=== PATIENT | female | born 1985 | race Caucasian/White ===

== ENCOUNTER 2017-10-09 20:26 | Emergency (ER) | payer BC, MEDICAID, SELFPAY ==
[2017-10-09 20:56] VITALS: TEMP 97.4
--- NOTE | 2017-10-09 21:46 | ED PDOC ---
Arrival/HPI - General Chief Complaint: Anxiety Time Seen by Provider: 10/09/17 20:52 Historian: Patient - History of Present Illness Narrative History of Present Illness (Text): 10/09/17 21:25 Nena Meade is a 32 year old female, whose past medical history includes C- section, who presents to the emergency department complaining of shortness of breath, shoulder pain, right -sided chest pain, and numbness to right forearm and right leg since 19:30 tonight. Patient states that last week she experienced pain to right arm but it went away. Today, patient states that symptoms came back but worse. Patient states that symptoms first began with shortness of breath, then pain to her right shoulder, chest, and arm. Patient's family notes that she had the same symptoms a few years ago and was told it was due to stress and anxiety. No other complaints at this time PMD: None Time/Duration: 1-3 hours Symptom Onset: Sudden Symptom Course: Unchanged Activities at Onset: Light Context: Home Past Medical History - Provider Review Nursing Documentation Reviewed: Yes - Psychiatric Hx Substance Use: No - Surgical History Hx Section: Yes Other/Comment: ovarian cyst removal Family/Social History - Physician Review Nursing Documentation Reviewed: Yes Family/Social History: No Known Family HX Smoking Status: Never Smoked Hx Alcohol Use: No Hx Substance Use: No Allergies/Home Meds Allergies/Adverse Reactions: Allergies No Known Allergies Allergy (Verified 10/09/17 20:46) Review of Systems - Physician Review All systems were reviewed & negative as marked: Yes - Review of Systems Constitutional: absent: Fevers, Night Sweats Eyes: absent: Vision Changes ENT: absent: Hearing Changes Respiratory: SOB Cardiovascular: Chest Pain (right-sided chest pain) Gastrointestinal: absent: Abdominal Pain Genitourinary Female: absent: Dysuria, Frequency Musculoskeletal: Other (right shoulder pain). absent: Arthralgias Skin: absent: Rash, Pruritis Neurological: Other (numbness to right forearm and right leg). absent: Headache , Dizziness Endocrine: absent: Diaphoresis, Polyuria Hemo/Lymphatic: absent: Adenopathy, Easy Bleeding Psychiatric: absent: Anxiety, Depression Physical Exam Vital Signs Reviewed: Yes Vital Signs Temp Pulse Resp BP Pulse Ox 10/09/17 23:11 89 16 119/71 97 10/09/17 20:54 97.4 F L 87 22 123/72 100 Temperature: Afebrile Blood Pressure: Normal Pulse: Regular Respiratory Rate: Normal Appearance: Positive for: Other (anxious) Pain Distress: None Mental Status: Positive for: Alert and Oriented X 3 - Systems Exam Head: Present: Atraumatic, Normocephalic Pupils: Present: PERRL Extroacular Muscles: Present: EOMI Conjunctiva: Present: Normal Mouth: Present: Moist Mucous Membranes Neck: Present: Normal Range of Motion Respiratory/Chest: Present: Clear to Auscultation, Good Air Exchange. No: Respiratory Distress, Accessory Muscle Use Cardiovascular: Present: Regular Rate and Rhythm, Normal S1, S2. No: Murmurs Abdomen: Present: Normal Bowel Sounds. No: Tenderness, Distention, Peritoneal Signs Back: Present: Normal Inspection Upper Extremity: Present: Normal ROM (Full ROM), Tenderness (to right arm from Right upper posterior back to anterior shoulder to right forearm), Other (Pain on palpation; decreased strength of right arm) Lower Extremity: Present: Other (decreased sensation of right leg) Neurological: Present: GCS=15, CN II-XII Intact, Speech Normal Skin: Present: Warm, Dry, Normal Color. No: Rashes Psychiatric: Present: Alert, Oriented x 3, Normal Insight, Normal Concentration , Anxious Medical Decision Making ED Course and Treatment: 10/09/17 21:49 Impression: 32 year old female complaining of shortness of breath, shoulder pain, right - sided chest pain, and numbness to right forearm and right leg since 19:30 tonight. Differential Diagnosis included but are not limited to: Anxiety vs. Muscle spasm vs. CVA Plan: -- EKG -- Chest X-ray -- Head CT w/o contrast -- Type and Screen -- Labs -- Ativan -- Reassess and disposition Progress Notes: 10/09/17 22:21 EKG: Ordered, reviewed, and independently interpreted the EKG. Rate : 91 BPM Rhythm : NSR Interpretation : No ST-segment elevations or depressions, no T-wave inversions, normal intervals. 10/09/17 23:20 CT pending. Case signed out to Dr. Collier to f/u CT, reevaluate and dispositoin. - Lab Interpretations Lab Results: 10/09/17 22:15 10/09/17 22:15 Lab Results 10/09/17 22:41: POC Glucose (mg/dL) 88 10/09/17 22:15: Blood Type O POSITIVE, Antibody Screen Negative, BBK History Checked No verified bt 10/09/17 22:15: Sodium 141, Potassium 3.6, Chloride 103, Carbon Dioxide 26, Anion Gap 15, BUN 9, Creatinine 0.5 L, Est GFR ( Amer) > 60, Est GFR (Non -Af Amer) > 60, Random Glucose 94, Calcium 10.2, Total Bilirubin 0.4, AST 26, ALT 39, Alkaline Phosphatase 107, Troponin I < 0.01, Total Protein 8.2, Albumin 4.5, Globulin 3.7, Albumin/Globulin Ratio 1.2, Triglycerides 52, Cholesterol 197 , LDL Cholesterol Direct 111, HDL Cholesterol 62 H 10/09/17 22:15: PT 13.1 H, INR 1.15 H, APTT 37.3 H, D-Dimer, Quantitative 202 10/09/17 22:15: WBC 6.5, RBC 4.47, Hgb 11.8 L, Hct 35.8 L, MCV 80.1, MCH 26.4, MCHC 33.0, RDW 13.2, Plt Count 337, MPV 9.9, Gran % 47.5 L, Lymph % (Auto) 43.3 H, [place] % (Auto) 7.6 H, Eos % (Auto) 1.1 L, Baso % (Auto) 0.5, Gran # 3.07, Lymph # 2.8, [place] # 0.5, Eos # 0.1, Baso # 0.03 - RAD Interpretation Radiology Orders: 10/09/17 21:36 CHEST ONE VIEW [RAD] Stat 10/09/17 21:37 HEAD W/O CONTRAST [CT] Stat - Medication Orders Current Medication Orders: Discontinued Medications Lorazepam (Ativan) 1 mg PO ONCE ONE PRN Reason: Protocol Stop: 10/09/17 21:44 Last Admin: 10/09/17 22:38 Dose: 1 mg NIHSS Scale ([place]) Time Performed: 20:52 - How Severe is the Stoke Baseline Level of Consciousness: 0=Alert LOC to Questions: 0=Both comments correct LOC to commands: 0=Obeys both correctly Best Gaze: 0=Normal Visual: 0=No visual loss Facial: 0=Normal Motor Arm - Left: 0=No drift Motor Arm - Right: 1=Drift noted before 10 sec Motor Leg - Left: 0=No drift Sensory: 1=Mild to moderate loss rTPA Inclusion/Exclusion - Refusal of Treatment Patient Refused Treatment: No - Inclusion Criteria for Altepase Patient is 18 years or Older: Yes The Clinical Diagnosis of Ischemic Stroke That is Causing a Potentially Disabling Neurological Deficit: No Time of Onset is Well Established to be Less Than 270 Minute Before Treatment Would Begin: Yes Risk/Benefit Discussed With Patient/Family Member Present: No TISH Risk Score for UA/NSTEMI - TISH Risk Score Age > 64: NO 3 or more CAD Risk Factors: NO Known CAD (Stenosis greater than 50%): NO Aspirin use in past 7 days: NO Severe Angina: NO EKG ST changes greater than 0.5mm: NO Positive Cardiac Marker: NO TISH Score: 0 % risk at 14 days of: all cause mortality, new or recurrent NM, or severe recurrent ischemia requiring urgen revascularization: 5% - Scribe Statement The provider has reviewed the documentation as recorded by the Marjorie Hartman Provider Scribe Attestation: All medical record entries made by the Marjorie were at my direction and personally dictated by me. I have reviewed the chart and agree that the record accurately reflects my personal performance of the history, physical exam, medical decision making, and the department course for this patient. I have also personally directed, reviewed, and agree with the discharge instructions and disposition. Disposition/Present on Arrival - Present on Arrival Any Indicators Present on Arrival: No History of DVT/PE: No History of Uncontrolled Diabetes: No Urinary Catheter: No History of Decub. Ulcer: No History Surgical Site Infection Following: None - Disposition Have Diagnosis and Disposition been Completed?: Yes Diagnosis: Arm pain, Numbness Disposition Time: 23:21 Condition: FAIR Referrals: PCP,NO [Primary Care Provider] - Follow up with primary Forms: [employer] ([place])
[2017-10-09 22:33] LABS: BASO # 0.03 K/mm3 (0.0-2.0); BASO % 0.5 % (0.0-3.0); EOS # 0.1 (0.0-0.7); EOS % 1.1 % (1.5-5.0); GRAN # 3.07 (1.4-6.5); GRAN % 47.5 % (50.0-68.0); HEMOGLOBIN 11.8 g/dL (12.0-16.0); LYMPH # 2.8 (1.2-3.4); LYMPH % 43.3 % (22.0-35.0); MEAN CELL VOLUME 80.1 fl (80.0-105.0); MEAN CORPUSCULAR HEMOGLOBIN 26.4 pg (25.0-35.0); MEAN PLATELET VOLUME 9.9 fl (7.0-11.0); MONO # 0.5 (0.1-0.6); MONO % 7.6 % (1.0-6.0); RBC 4.47 10^6/uL (3.5-6.1); RED CELL DISTRIBUTION WIDTH 13.2 % (11.5-14.5); WHITE BLOOD COUNT 6.5 10^3/ul (4.5-11.0)
[2017-10-09 22:40] LABS: ALB/GLOB RATIO 1.2 (1.1-1.8); ALBUMIN 4.5 g/dL (3.0-4.8); ALT/SGPT 39 U/L (7-56); AST/SGOT 26 U/L (14-36); BLOOD UREA NITROGEN 9 mg/dL (7-21); CALCIUM 10.2 mg/dL (8.4-10.5); GFR AFRICAN-AMERICAN > 60; GFR NON-AFRICAN AMERICAN > 60; HDL CHOLESTEROL 62 mg/dL (29-60)
[2017-10-09 22:47] LABS: INR 1.15 (0.93-1.08); PARTIAL THROMBOPLASTIN TIME 37.3 Seconds (25.1-36.5); PROTHROMBIN TIME 13.1 SECONDS (9.4-12.5)
[2017-10-09 22:50] LABS: TROPONIN I < 0.01 ng/mL
[2017-10-09 22:51] LABS: LDL CHOLESTEROL 111 mg/dL (0-129)
[2017-10-09 23:11] VITALS: BP 119/71; PULSE 89; RESP 16; O2SAT 97
--- NOTE | 2017-10-09 23:41 | ED PDOC ---
Physical Exam Vital Signs Reviewed: Yes Vital Signs Temp Pulse Resp BP Pulse Ox 10/09/17 23:11 89 16 119/71 97 10/09/17 20:54 97.4 F L 87 22 123/72 100 Finger Stick Blood Glucose: 88 Medical Decision Making ED Course and Treatment: 10/09/17 23:00 Case endorsed to me by Dr. Hills, pending CT, re-assessment, and disposition. 10/10/17 00:28 CT Head shows: Brain: No intracranial hemorrhage. No mass. No definite edema. Ventricles: No hydrocephalus. Bones/joints: No acute fracture. Soft tissues: Unremarkable. Sinuses: No acute sinusitis. Mastoid air cells: No mastoid effusion. Orbits: Unremarkable as visualized. IMPRESSION: 1. No definite acute intracranial abnormality. 10/10/17 00:41 Pt still complaining of chest pain, although currently less. Pt was advised admission to the hospital for evaluation of possible underlying cardiac disease. Pt now adamantly refusing to stay in the hospital. Pt understands risks of signing our against medical advice. Leaving Against Medical Advice (AMA): The patient is choosing to leave against medical advice. I have personally explained to the patient that choosing to do so may result in permanent bodily harm or . I have discussed at great length that without further evaluation and monitoring there may be unforeseen circumstances and/or deterioration causing permanent bodily harm or as a result of their choice. The patient is alert, oriented, and shows the mental capacity to make clear decisions regarding the patients health care at this time. The patient continues to wish to leave against medical advice. In light of the patients decision to leave against medical advice, patient is aware of the importance to following up as instructed. The patient has been advised that they should return to the emergency room immediately if they change their mind at any time, or if their condition begins to change or worsen in any way.. - Lab Interpretations Lab Results: 10/09/17 22:15 10/09/17 22:15 Lab Results 10/09/17 22:41: POC Glucose (mg/dL) 88 10/09/17 22:40: Blood Type Confirm O POSITIVE 10/09/17 22:15: Blood Type O POSITIVE, Antibody Screen Negative, BBK History Checked No verified bt 10/09/17 22:15: Sodium 141, Potassium 3.6, Chloride 103, Carbon Dioxide 26, Anion Gap 15, BUN 9, Creatinine 0.5 L, Est GFR ( Amer) > 60, Est GFR (Non -Af Amer) > 60, Random Glucose 94, Calcium 10.2, Total Bilirubin 0.4, AST 26, ALT 39, Alkaline Phosphatase 107, Troponin I < 0.01, Total Protein 8.2, Albumin 4.5, Globulin 3.7, Albumin/Globulin Ratio 1.2, Triglycerides 52, Cholesterol 197 , LDL Cholesterol Direct 111, HDL Cholesterol 62 H 10/09/17 22:15: PT 13.1 H, INR 1.15 H, APTT 37.3 H, D-Dimer, Quantitative 202 10/09/17 22:15: WBC 6.5, RBC 4.47, Hgb 11.8 L, Hct 35.8 L, MCV 80.1, MCH 26.4, MCHC 33.0, RDW 13.2, Plt Count 337, MPV 9.9, Gran % 47.5 L, Lymph % (Auto) 43.3 H, [place] % (Auto) 7.6 H, Eos % (Auto) 1.1 L, Baso % (Auto) 0.5, Gran # 3.07, Lymph # 2.8, [place] # 0.5, Eos # 0.1, Baso # 0.03 - RAD Interpretation Radiology Orders: 10/09/17 21:36 CHEST ONE VIEW [RAD] Stat 10/09/17 21:37 HEAD W/O CONTRAST [CT] Stat - Medication Orders Current Medication Orders: Discontinued Medications Lorazepam (Ativan) 1 mg PO ONCE ONE PRN Reason: Protocol Stop: 10/09/17 21:44 Last Admin: 10/09/17 22:38 Dose: 1 mg Disposition/Present on Arrival - Present on Arrival Any Indicators Present on Arrival: No History of DVT/PE: No History of Uncontrolled Diabetes: No Urinary Catheter: No History of Decub. Ulcer: No History Surgical Site Infection Following: None - Disposition Have Diagnosis and Disposition been Completed?: Yes Diagnosis: Arm pain, Numbness, Chest pain Disposition: AGAINST MEDICAL ADVICE Disposition Time: 00:40 Patient Problems: Current Active Problems Problem Status Onset Arm pain Acute Chest pain Acute Numbness Acute Condition: FAIR Discharge Instructions (ExitCare): Chest Pain (ED) Referrals: PCP,NO [Primary Care Provider] - Follow up with primary Forms: [employer] ([place])
--- NOTE | 2017-10-10 00:06 | CT ---
EXAM: CT Head Without Intravenous Contrast CLINICAL HISTORY: 32 years old, female; Pain; Headache; Migraine; Aura effect not specified; Additional info: Right sided numbness and pain TECHNIQUE: Axial computed tomography images of the head/brain without intravenous contrast. All CT scans at this facility use one or more dose reduction techniques, viz.: automated exposure control; ma/kV adjustment per patient size (including targeted exams where dose is matched to indication; i.e. head); or iterative reconstruction technique. Coronal and sagittal reformatted images were created and reviewed. COMPARISON: No relevant prior studies available. FINDINGS: Brain: No intracranial hemorrhage. No mass. No definite edema. Ventricles: No hydrocephalus. Bones/joints: No acute fracture. Soft tissues: Unremarkable. Sinuses: No acute sinusitis. Mastoid air cells: No mastoid effusion. Orbits: Unremarkable as visualized. IMPRESSION: 1. No definite acute intracranial abnormality.
--- NOTE | 2017-10-10 08:38 | RAD ---
PROCEDURE: CHEST RADIOGRAPH, 1 VIEW HISTORY: shortness of breathe COMPARISON: None available. FINDINGS: LUNGS: Clear. PLEURA: No pneumothorax or pleural fluid seen. CARDIOVASCULAR: Normal. OSSEOUS STRUCTURES: No significant abnormalities. VISUALIZED UPPER ABDOMEN: Normal. OTHER FINDINGS: None. IMPRESSION: No active disease.
--- NOTE | 2017-10-10 10:57 | CARD ---
APPROVED REPORT EKG Measurement Heart [id number] <Conclusion> Normal sinus rhythm Nonspecific T wave abnormality Abnormal ECG
== END 2017-10-10 00:51 | disposition left against medical advice (07) ==
LOC: ED 20:26
DX: M79.601 Pain in right arm (principal)